=== PATIENT | male | born 1950 | race Caucasian/White ===

== ENCOUNTER 2023-08-10 06:21 | Day surgery (SDC) | payer MEDICARE, SELFPAY ==
[2023-08-02 14:46] VITALS: BMI 28.1
--- NOTE | 2023-08-09 07:53 | PM.HP.1 ---
History of Present Illness History of Present Illness Chief complaint: [facility] [place]ative: 73-year-old man with a moderate-sized umbilical hernia here for elective repair. In the interval he has started anti hypertension medication today's blood pressure is 160/90 which is improved from 190/110. [facility] Medical History Chronic shoulder pain Arthritis Surgical History S/P rotator cuff repair Family History Father Heart disease Sister Ovarian cancer Social History marital status: household members: spouse lives independently: Yes Smoking Status: Former smoker alcohol intake: current substance use type: does not use Meds Home Medications and Allergies Home Medications Medication Instructions Recorded Confirmed Type ibuprofen 200 mg tablet 800 mg PO Q6HP ##0 07/04/12 08/10/23 History hydrochlorothiazide 25 mg tablet 25 mg PO DAILY 07/13/23 08/10/23 History losartan 50 mg tablet 50 mg PO DAILY 07/13/23 08/10/23 History Allergies Allergy/AdvReac Type Severity Reaction Status Date / Time No Known Drug Allergies Allergy Verified 08/10/23 06:52 Exam Narrative Exam Narrative: General adult man alert oriented no acute distress Chest nonlabored respiration Abdomen moderate size umbilical hernia reducible Extremities warm well perfused Assessment & Plan Assessment and plan (1) Umbilical hernia: Qualifiers: Obstruction and gangrene presence: without obstruction or gangrene Qualified Code(s): K42.9 - Umbilical hernia without obstruction or gangrene Status: Acute Assessment & Plan narrative: 73-year-old man with a symptomatic partially reducible umbilical hernia here for elective open repair. Overview of the procedure once again reviewed. We discussed the surgical risks (hemorrhage, infection, reoccurence, intestinal injury, chronic pain), benefits and alternatives and following discussion he elects to proceed and provides his consent.
[2023-08-10] VITALS (8 sets, daily range): BP systolic 102–162; BP diastolic 60–96; PULSE 59–92; RESP 10–21; TEMP 36.3–36.8; O2SAT 68–99; BMI 28.1
[2023-08-10] MEDS: LACTATED RINGERS 1,000 ML 42 ML IV (06:51)
[2023-08-10] MEDS: ACETAMINOPHEN IV 1,000 MG/100 ML VIAL 400 MG IV (07:50)
[2023-08-10] MEDS: CEFAZOLIN 2 GM/100 ML PREMIX 100 ML IV (07:50)
--- NOTE | 2023-08-10 08:05 | SUR.OPER ---
Supine on padded OR bed, head on pillow, arms secured on padded arm boards at <90 degrees abduction, legs uncrossed, safety belt at thigh, tape over blanket over lower legs.
[2023-08-10] MEDS: BUPIVACAINE 0.25% (PF) 30 ML, EPINEPHrine 0.15 MG INJ (08:16)
--- NOTE | 2023-08-10 08:45 | PM.OP.1 ---
Operative Date/Time/Diagnoses Date of procedure: 08/10/23 Time of procedure: 08:45 Pre-op diagnosis: Umbilical hernia Post-op diagnosis: same Procedure & Clinicians Procedure: Open umbilical hernia repair mesh Same procedure as scheduled: Yes Indications: Symptomatic partially reducible umbilical hernia Surgeon: Kingston Calhoun Mud Cleaner Operator: Masoud Aguilar Anesthesia Type: General Operative Notes Findings: 4 cm fascial defect containing omentum Specimen(s): none sent Estimated Blood Loss (mL): 30 Procedure in detail: Patient was brought to the operating room placed supine on the table. Bilateral lower extremity compression devices were applied. General anesthesia was induced and they were intubated with an endotracheal tube. They received 2 g of Ancef prior to skin incision. They were prepped and draped in sterile fashion. A time-out was performed. A curvilinear incision was made inferior to the umbilicus. The subcutaneous tissues were divided. The umbilical hernia was identified and the hernia sac was dissected off the umbilical skin and circumferentially off of the fascia defect. The hernia sac was sharply opened and contained viable omentum. The omentum was reduced back into the abdomen. Using blunt dissection I carefully carefully freed the hernia sac from beneath the fascia defect in order to accomodate the mesh. The fascia defect was 4 cm in maximal diameter. A Bard Ventralex ST hernia patch 8 cm was inserted beneath the fascia defect and above the peritoneum in a sublay position. The mesh was anchored in multiple locations using Ethibond suture to the fascia and the fascial defect was closed over the mesh. The umbilical skin was tacked to the subcutaneous tissues and then the remainder of the subcutaneous tissues were reapproximated using 3 0 Vicry,l skin closed with 4 0 Monocryl followed by the application of Dermabond and Steri-Strips. Sponge instrument count at the end of the operation was correct. Patient tolerated procedure well was extubated and transferred to postoperative care unit in stable condition. Complications: none Post-operative Condition: stable Disposition: same day surgery
[2023-08-10] MEDS: OXYCODONE IR 5 MG TABLET PO (09:20)
--- NOTE | 2023-08-10 09:42 | SUR.PHASEII ---
Moderate amount of drainage noted to umbilicus dressing; removed existing dressing and replaced with new gauze and larger tegaderm. Dressing supplies given to patient for home. Patient voided prior to discharge with .
== END 2023-08-10 10:09 | disposition home or self-care (01) ==
PROVIDERS: Family Provider Family Medicine; Referring Provider Surgery; Visit Provider Surgery
PROC: (CPT 49593; principal; 2023-08-10 07:45)
DX: K42.9 Umbilical hernia without obstruction or gangrene (principal)
CPT/HCPCS: 49593; J0136; J0171; J0690; J1100; J1170; J2405; J2704; J3490

== ENCOUNTER → 2024-10-02 08:05 | Outpatient (CLI) | payer MEDICARE, SELFPAY ==
[2024-10-02 09:22] LABS: HEMOLYSIS < 15 (0-50)
[2024-10-02 09:23] LABS: Blood Urea Nitrogen 19 mg/dL (9-20); Calcium 9.9 mg/dL (8.4-10.2); Carbon Dioxide 28 mmol/L (22-32); Chloride 101 mmol/L (98-107); Estimated Glomerular Filt Rate > 60 mL/min (>60); Glucose 122 mg/dL (70-99); Potassium 4.4 mmol/L (3.4-5.1); Sodium 138 mmol/L (137-145); Uric Acid 5.6 mg/dL (3.5-8.5)
== END ==
PROVIDERS: Family Provider Family Medicine; Referring Provider Physician Assistant Surgical; Visit Provider Physician Assistant Surgical
DX: M11.20 Other chondrocalcinosis, unspecified site (principal); M25.531 Pain in right wrist; M25.431 Effusion, right wrist
CPT/HCPCS: 36415; 80048; 84550; 86140; 86200; 86430

== ENCOUNTER → 2024-11-23 11:01 | Outpatient (CLI) | payer MEDICARE, SELFPAY ==
--- NOTE | 2024-11-23 11:03 | DI.RAD.S_ITS ---
PROCEDURE: FL ARTHROGRAM WRIST RT INDICATIONS: right wrist pain COMPARISON: None. TECHNIQUE: After informed consent had been obtained, the wrist was examined fluoroscopically, and a site chosen for injection of the radiocarpal compartment from a dorsal approach. Skin was prepped and draped in a sterile fashion and 1% lidocaine infiltrated from the skin down to the articular surface. A hypodermic needle was then introduced into the articular space and a modest amount of contrast medium was instilled confirming intra-articular needle tip placement. This was followed by approximately 4 mL of a dilute gadolinium solution. Needle was removed and dressing was applied. The patient experienced no complications throughout the procedure and left the fluoroscopic suite in no apparent distress. FINDINGS: A single fluoroscopic spot image demonstrates intra-articular location to injected iodinated contrast. IMPRESSION: Successful fluoroscopic-guided administration of dilute Gadolinium solution for wrist MR arthrogram. Dictated by: Conner Miranda M.D. on 11/23/2024 at 13:45 Approved by: Conner Miranda M.D. on 11/23/2024 at 13:48
--- NOTE | 2024-11-23 11:03 | DI.MRI.S_ITS ---
PROCEDURE: MR WRIST RT W CON INDICATIONS: right wrist pain TECHNIQUE: After the administration of 3-4 mL of dilute intra-articular Gadolinium contrast into the radiocarpal compartment, coronal T1 spin echo with fat saturation and T2 fast spin echo with fat saturation, axial T1 spin echo and T2 fast spin echo with fat saturation, sagittal T1 spin echo with and without fat saturation through the wrist. COMPARISON: None. FINDINGS: Image quality: Diagnostic. Patient motion is noted during the study. Bones and cartilage: Osteoarthritic changes are noted throughout right wrist joints with joint space narrowing, subchondral sclerosis and subcortical cystic changes particularly involving distal carpal row and 2nd and 3rd metacarpal bases. Erosion secondary to inflammatory arthropathy cannot be entirely excluded. No acute fracture or dislocation. No evidence of avascular necrosis . No suspicious bony lesions. Carpal ligaments: The scapholunate and lunotriquetral ligaments appear intact, without gadolinium extravasation into the mid-carpal compartment. The radioscaphocapitate and radiolunotriquetral ligaments appear intact. The dorsal intercarpal and radiotriquetral ligaments appear intact. On sagittal images, the pisohamate ligament appears intact. Triangular fibrocartilage complex: Complex tear throughout triangular fibrocartilage complex in its central and lateral portion near its radial insertion with contrast extravasating into the distal radioulnar joint. The ulnar collateral ligament appears intact. The extensor carpi ulnaris tendon is thickened with intrasubstance T2 hyperintense signal and fluid distension of tendon sheath at the level of distal ulna and ulnar styloid. There is volar subluxation of distal ulna in relation to distal radius. No roscoe dislocation. Tendons and soft tissues: The carpal tunnel structures appear normal, including the median nerve. The ulnar nerve appears normal within Guyon's canal. All six extensor tendon compartments demonstrate normal morphology, without pathologic tendon sheath fluid. No soft tissue ganglion cysts. IMPRESSION: 1. Ceul-op-sxkjcjoo osteoarthritic changes throughout wrist joints most notably involving radiocarpal and ulnar carpal joints. There is negative ulnar variance. Volar subluxation of distal ulna in relation to distal radius at distal radial ulnar joint is noted. No acute fracture or dislocation. No evidence of avascular necrosis. Subcortical cystic changes throughout carpal bones and metacarpal basis as above, erosion secondary to inflammatory arthropathy cannot be excluded. 2. Complex tear involving triangular fibrocartilage particularly near its radial insertion. Contrast extravasating into distal radial ulnar joint space. 3. Moderate grade intrasubstance partial-thickness tear and low to moderate grade tenosynovitis involving extensor carpi ulnaris tendon at the level of distal ulnar and ulnar styloid. 4. Scapholunate and lunotriquetral ligaments are intact. 5. Rest of the extensor and flexor tendons are intact. Dictated by: Conner Miranda M.D. on 11/23/2024 at 14:41 Approved by: Conner Miranda M.D. on 11/23/2024 at 15:31
[2024-11-23] MEDS: LIDOCAINE 1% 20 ML INJ (13:02)
[2024-11-23] MEDS: SODIUM CHLORIDE 0.9 % 20 ML VIAL IV (13:02)
== END ==
LOC: RAD 11:03
PROVIDERS: Family Provider Family Medicine; Referring Provider Physician Assistant Surgical; Visit Provider Physician Assistant Surgical
DX: S63.591A Other specified sprain of right wrist, initial encounter (principal); M65.931 Unspecified synovitis and tenosynovitis, right forearm; M25.531 Pain in right wrist
CPT/HCPCS: 25246; 73115; 73222; A9579; Q9967